=== PATIENT | male | born 1990 ===

== ENCOUNTER 2018-04-21 17:28 | Emergency (ER) | payer BC ==
[2018-04-21 17:43] VITALS: BP 131/79; PULSE 74; RESP 16; TEMP 97.8; O2SAT 98
--- NOTE | 2018-04-21 18:04 | ED PDOC ---
Upper Extremity Pain/Injury Time Seen by Provider: 04/21/18 17:45 Chief Complaint (Nursing): Finger,Hand,&Wrist Chief Complaint (Provider): Finger,Hand,&Wrist History Per: Patient History/Exam Limitations: no limitations Onset/Duration Of Symptoms: Hrs (x 6) Pain Scale Rating Of: 2 Additional Complaint(s): 27 years old right hand dominant male presents to the ED for evaluation of left fourth digit injury onset 6 hours. Patient reports he was at the gym around noon when his finger was crushed between two weights. He rates pain as 2 out of 10 scale confined to left fourth digit. Patient admits applying water to his finger and denies taking any medication for pain. . PMD: non provided Tetanus is up to date. Past Medical History Reviewed: Historical Data, Nursing Documentation, Vital Signs Vital Signs: Last Vital Signs Temp 97.8 F 04/21/18 17:41 Pulse 74 04/21/18 17:41 Resp 16 04/21/18 17:41 BP 131/79 04/21/18 17:41 Pulse Ox 98 04/21/18 17:41 - Medical History PMH: Asthma - Surgical History Surgical History: No Surg Hx - Family History Family History: States: Unknown Family Hx - Social History Current smoker - smoking cessation education provided: No Alcohol: None Drugs: Denies - Home Medications Home Medications: Ambulatory Orders Medication Instructions Recorded Bacitracin Ointment [Bacitracin] 1 applic TOP BID #1 tube 04/21/18 Cephalexin [cephalexin] 500 mg PO BID #14 cap 04/21/18 Ibuprofen [Motrin Tab] 600 mg PO Q6 PRN #24 tab 04/21/18 - Allergies Allergies/Adverse Reactions: Allergies Allergy/AdvReac Type Severity Reaction Status Date / Time peanut Allergy SHORTNESS Verified 04/21/18 17:41 OF BREATH Review of Systems ROS Statement: Except As Marked, All Systems Reviewed And Found Negative Musculoskeletal: Positive for: Hand Pain (left 4th digit laceration) Physical Exam - Physical Exam Comments: GENERAL APPEARANCE: Patient is awake, alert, oriented x 3, in no acute distress. SKIN: Warm, dry; (-) cyanosis. WRIST: (-) Tenderness, (-) swelling, (-) ecchymosis of left wrist. (-) deformity. (-) snuff-box tenderness. (-) distal neurovascular deficit _ Elbow , hand and digits: (+) tenderness to left hand 4th digit, (+) 0.75 cm vertically oriented laceration to pomer aspect to left 4th digit. (-)bleeding, ( -) Subungual hematoma (+) Full ROM of 4th digit. CHEST AND RESPIRATORY: (-) retractions, (-) rales, (-) rhonchi, (-) wheezes; breath sounds equal bilaterally. HEART AND CARDIOVASCULAR: (-) irregularity; (-) murmur, (-) gallop. NEURO AND PSYCH: Mental status as above. - ECG O2 Sat by Pulse Oximetry: 98 (RA) Pulse Ox Interpretation: Normal Medical Decision Making Medical Decision Making: Time: 1751 Initial Impression: finger contusion and laceration. Initial Plan: --Left Hand 3-View Rad --Patient declined pain medication in ED --Laceration repair 1899 XR reviewed: (+) fracture of the distal phalanx of the 4th digit In light of overlying laceration, Keflex PO administered. Consult placed to hand, Dr Velasco. [address] Velasco, who is agreeable to ED treatment plan. States patient can follow up in his [address] office this 04/24/18. 1939 Laceration repair by Taiwo HENDRICKS. See procedure note. Patient tolerated procedure well. Bacitracin, Bandaid and aluminum finger splint placed. NV intact after procedure and placement. Educated on wound care. 1999 On re-evaluation, patient reports improvement of symptoms. On exam, patient remains AAOx3, in no acute distress; neck is supple, lungs CTA, cardiac RRR, neuro exam shows no focal findings. VSS, stable for discharge. Diagnostic results d/w the patient in great detail. Dx of open finger fracture d /w the patient. Based on history, exam and diagnostic results plan will be for discharge and outpatient follow up with Dr Velasco (hand). Advised to follow up with primary care physician/[facility] (referral provided) in 1- 2 days without fail. Advised to take medication as prescribed. Return to the emergency room at any time for any new or worsening symptoms. Patient states he fully agrees with and understands discharge instructions. States that he agrees with the plan and disposition. Verbalized and repeated discharge instructions and plan. I have given the patient opportunity to ask any additional questions. Scribe Attestation: Documented by Smita Decker, acting as a scribe for Aminata Maravilla PA-C Provider Scribe Attestation: All medical record entries made by the Scribe were at my direction and personally dictated by me. I have reviewed the chart and agree that the record accurately reflects my personal performance of the history, physical exam, medical decision making, and the department course for this patient. I have also personally directed, reviewed, and agree with the discharge instructions and disposition. Procedures - Time-Out Type of Procedure: Laceration Repair Site of Procedure: Finger Correct Patient: Yes Correct Procedure: Yes Correct Site Marked: Yes PA/Tech: Taiwo HENDRICKS - Laceration/Wound Repair Left Finger Wound Length (cm): 0.75 Wound's Depth, Shape: superficial, linear Wound Explored: no foreign body removed Irrigated w/ Saline (ccs): 100 Anesthesia: 1% Lidocaine Volume Anesthetic (ccs): 2 Wound Debrided: minimal Wound Repaired With: Sutures Suture Size/Type: 5:0 (ethilon) Number of Sutures: 2 Layer Closure?: No Wound Complexity: Simple Sterile Dressing Applied?: Yes Splint Applied?: Yes (aluminum finger splint) Progress: Patient tolerated procedure well. Disposition - Clinical Impression Clinical Impression: Fracture of distal phalanx of finger, open, Finger laceration - Patient ED Disposition Is Patient to be Admitted: No Counseled Patient/Family Regarding: Studies Performed, Diagnosis, Need For Followup, Rx Given - Disposition Referrals: Cristian Velasco MD [Medical Doctor] - Disposition: Routine/Home Disposition Time: 20:01 Condition: STABLE Additional Instructions: KEEP WOUND CLEAN AND DRY. CLEAN TWICE DAILY WITH WARM WATER AND ANTIBACTERIAL SOAP. TAKE ANTIBIOTICS UNTIL COMPLETE. RETURN TO ED WITH ANY NEW OR WORSENING SYMPTOMS. FOLLOW UP DR VELASCO DIRECTED ON 04/24/18. Prescriptions: Bacitracin Ointment [Bacitracin] 1 applic TOP BID #1 tube Cephalexin [cephalexin] 500 mg PO BID #14 cap Ibuprofen [Motrin Tab] 600 mg PO Q6 PRN #24 tab PRN Reason: Pain, Moderate (4-7) Instructions: Laceration Repair With Stitches (DC), Common Finger Injuries, Finger Fracture, Wound Care Forms: [employer] (Monegasque) Print Language: TELUGU - POA Present On Arrival: Falls Or Trauma (CRUSH INJURY OF DIGIT)
--- NOTE | 2018-04-21 18:44 | RAD ---
PROCEDURE: Left Hand Radiographs. HISTORY: crush injury to left 4th digit COMPARISON: None. FINDINGS: BONES: There is a comminuted mildly displaced fracture in the tuft of the distal phalanx of the 4th finger. JOINTS: Normal. SOFT TISSUES: There is irregularity and soft tissue swelling in the tuft of the 4th finger. No radiopaque foreign body. OTHER FINDINGS: None. IMPRESSION: Comminuted mildly displaced crash fracture in the tuft of the distal phalanx of the 4th finger with surrounding soft tissue swelling and laceration. No radiopaque foreign body.
[2018-04-21] MEDS ORDERED: Lidocaine 1% Inj (20ml) IJ STA (19:07)
[2018-04-21] MEDS ORDERED: Bacitracin 500 Units/gm Oint Foilpak UD ONE (19:48)
== END 2018-04-21 20:20 | disposition home or self-care (01) ==
LOC: H.ER 17:28
DX: S61.215A Laceration without foreign body of left ring finger without damage to nail, initial encounter (principal); W23.0XXA Caught, crushed, jammed, or pinched between moving objects, initial encounter; Y93.9 Activity, unspecified; Y92.39 Other specified sports and athletic area as the place of occurrence of the external cause; J45.909 Unspecified asthma, uncomplicated; S60.00XA Contusion of unspecified finger without damage to nail, initial encounter

== ENCOUNTER 2019-04-01 08:32 | Emergency (ER) | payer BC, MEDICAID ==
[2019-04-01 08:56] VITALS: O2SAT 96; BMI 27.7
[2019-04-01] MEDS ORDERED: Albuterol-Ipratrop 3 mg / 0.5 (3 ml) UD INH STA ×2 (09:54→11:12)
--- NOTE | 2019-04-01 10:09 | ED PDOC ---
HPI: SOB/CHF/COPD Time Seen by Provider: 04/01/19 09:13 Chief Complaint (Nursing): Shortness Of Breath Chief Complaint (Provider): Shortness of breath History Per: Patient History/Exam Limitations: no limitations Onset/Duration Of Symptoms: Days (1) Current Symptoms Are (Timing): Still Present Current Respiratory Medications: Albuterol Additional History Per: Patient Additional Complaint(s): 28yo male with history of asthma, comes to ER reporting asthma exacerbation. Patient reports cough, shortness of breath and chest tightness since last night, which is typical of asthma exacerbation. He forgot his medications while visiting [place] so was unable to take anything at home for symptoms; patient usually takes albuterol nebulizer and MDI if needed with relief of symptoms. Otherwise, no fever, chest pain, dizziness, or other complaints. Patient states he was fine prior to onset of symptoms. PMD: None Past Medical History Reviewed: Historical Data, Nursing Documentation, Vital Signs Vital Signs: Last Vital Signs Temp 98 F 04/01/19 08:55 Pulse 85 04/01/19 08:55 Resp 20 04/01/19 08:55 BP 122/74 04/01/19 08:55 Pulse Ox 96 04/01/19 08:55 Primary Care Provider: FAMILY PROVIDER,NO - Medical History PMH: Asthma - Surgical History Surgical History: No Surg Hx - Family History Family History: States: Unknown Family Hx - Social History Current smoker - smoking cessation education provided: No Alcohol: None Drugs: Denies - Home Medications Home Medications: Ambulatory Orders Medication Instructions Recorded Bacitracin Ointment [Bacitracin] 1 applic TOP BID #1 tube 04/21/18 Cephalexin [cephalexin] 500 mg PO BID #14 cap 04/21/18 Ibuprofen [Motrin Tab] 600 mg PO Q6 PRN #24 tab 04/21/18 Albuterol 0.083% [Albuterol 0.083% 1 puff IH Q4H PRN #10 04/01/19 Inhal Roseline (2.5 mg/3 ml) UD] Albuterol HFA [Ventolin HFA 90 1 - 2 puff IH Q4H PRN #1 bottle 04/01/19 mcg/actuation (8 g)] Nebulizer [Compact Compressor 1 dev INH PRN PRN #1 dev 04/01/19 Nebulizer] predniSONE [Prednisone] 40 mg PO DAILY #8 tab 04/01/19 - Allergies Allergies/Adverse Reactions: Allergies Allergy/AdvReac Type Severity Reaction Status Date / Time peanut Allergy SHORTNESS Verified 04/01/19 09:05 OF BREATH Review of Systems ROS Statement: Except As Marked, All Systems Reviewed And Found Negative Constitutional: Negative for: Fever, Chills Cardiovascular: Positive for: Other (chest tightness). Negative for: Chest Pain Respiratory: Positive for: Cough, Shortness of Breath Neurological: Negative for: Dizziness Physical Exam - Reviewed Nursing Documentation Reviewed: Yes Vital Signs Reviewed: Yes - Physical Exam Appears: Positive for: Non-toxic, Uncomfortable Head Exam: Positive for: ATRAUMATIC, NORMAL INSPECTION, NORMOCEPHALIC Skin: Positive for: Normal Color Eye Exam: Positive for: Normal appearance, EOMI, PERRL Neck: Positive for: Supple Cardiovascular/Chest: Positive for: Regular Rate, Rhythm. Negative for: Tachycardia Respiratory: Positive for: Normal Breath Sounds (good air entry bilaterally), Wheezing, Other (speaking full sentences). Negative for: Decreased Breath Sounds, Respiratory Distress Gastrointestinal/Abdominal: Positive for: Normal Exam, Soft Back: Positive for: Normal Inspection Extremity: Positive for: Normal ROM Neurological/Psych: Positive for: Awake, Alert, Normal Tone - ECG O2 Sat by Pulse Oximetry: 96 (RA) Pulse Ox Interpretation: Normal Medical Decision Making Medical Decision Makinyo male with asthma exacerbation Plan: -- Duoneb 3ml INH -- Prednisone 40mg PO -- EKg pt got his treatments and feels completely better. on reexamination, on lung exam there is no wheezing. pt stable for dc home and outpt follow up, referred to clinic for follow up refilled his meds ScribeAttestation: Documented byTamiko Grewal acting as a scribe for Guillaume Dsouza MD. Provider ScribeAttestation: All medical record entries made by the Scribe were at my direction and personally dictated by me. I have reviewed the chart and agree that the record accurately reflects my personal performance of the history, physical exam, medical decision making, and the department course for this patient. I have also personally directed, reviewed, and agree with the discharge instructions and disposition. Disposition - Clinical Impression Clinical Impression: Asthma attack - Patient ED Disposition Is Patient to be Admitted: No Counseled Patient/Family Regarding: Studies Performed, Diagnosis, Need For Followup - Disposition Referrals: [facility] [Outside] [facility] [Outside] Disposition: Routine/Home Disposition Time: 11:30 Condition: IMPROVED Additional Instructions: follow up with the clinic this week return to the ED with any worsening or concerning symptoms Prescriptions: Albuterol 0.083% [Albuterol 0.083% Inhal Roseline (2.5 mg/3 ml) UD] 1 puff IH Q4H PRN #10 PRN Reason: Wheezing Albuterol HFA [Ventolin HFA 90 mcg/actuation (8 g)] 1 - 2 puff IH Q4H PRN #1 bottle PRN Reason: Wheezing Nebulizer [Compact Compressor Nebulizer] 1 dev INH PRN PRN #1 dev PRN Reason: Cough predniSONE [Prednisone] 40 mg PO DAILY #8 tab Instructions: Asthma, Adult (DC) Forms: [email or web address] ([employer])
[2019-04-01] MEDS ORDERED: Albuterol-Ipratrop 3 mg / 0.5 (3 ml) UD ONE ×2 (10:18→11:39)
--- NOTE | 2019-04-01 12:16 | CARD ---
APPROVED REPORT Date of service: 04/01/2019 EKG Measurement Heart [id number] <Conclusion> Normal sinus rhythm Incomplete right bundle branch block Borderline ECG
[2019-04-01 12:52] VITALS: BP 125/81; PULSE 82; RESP 18; TEMP 98.3
== END 2019-04-01 12:48 | disposition home or self-care (01) ==
LOC: H.ER 08:32
DX: J45.901 Unspecified asthma with (acute) exacerbation (principal); J44.9 Chronic obstructive pulmonary disease, unspecified; Z79.899 Other long term (current) drug therapy